=== PATIENT | female | born 1950 | race Caucasian/White ===

== ENCOUNTER 2016-12-13 11:27 | Outpatient (CLI) | payer MEDICARE, OTHER ==
--- NOTE | 2016-12-15 07:58 | Mammography Report ---
DIGITAL SCREENING MAMMOGRAM: 12/13/2016 CLINICAL INDICATION: A 66-year-old for baseline, history of bilateral implants. TECHNIQUE: Routine CC and MLO projections were obtained of the breasts as well as bilateral implant displaced views. FINDINGS: The breasts demonstrate scattered fibroglandular densities bilaterally. Bilateral subglan dular saline implants are present. The right implant is deflated, and has a densely calcified capsul e. The left implant appears unremarkable, with some capsular calcification. No suspicious masses, c lustered microcalcifications, or regions of architectural distortion are identified. IMPRESSION: BENIGN FINDINGS. RUPTURED RIGHT IMPLANT, WITH A DENSELY CALCIFIED CAPSULE. RECOMMENDATION: Routine annual screening unless otherwise clinically indicated. Consider Plastic Bauman rgery consultation. BIRADS CATEGORY 2 - BENIGN FINDINGS. STANDARD QUALIFYING STATEMENTS 1. This examination was reviewed with the aid of Computer-Aided Detection (CAD). 2. A negative or benign imaging report should not delay biopsy if clinically suspicious findings are present. Consider surgical consultation if warranted. More than 5% of cancers are not identified by i maging. 3. Dense breasts may obscure an underlying neoplasm. 16:9:04 JOB #: [id number] EXT JOB #:[id number]
== END 2016-12-13 11:28 | disposition home or self-care (01) ==
LOC: DI 11:27
PROVIDERS: ATTEND Internal Medicine
DX: Z12.31 Encounter for screening mammogram for malignant neoplasm of breast (principal); T85.41XA Breakdown (mechanical) of breast prosthesis and implant, initial encounter; Z98.82 Breast implant status
CPT/HCPCS: 77067